=== PATIENT | male | born 1950 | race Caucasian/White ===

== ENCOUNTER → 2017-10-15 | Outpatient (CLI) | payer MEDICARE, OTHER, SELFPAY | PROVIDERS: Family Provider Physician Assistant; Visit Provider Physician Assistant | DX: J44.9 Chronic obstructive pulmonary disease, unspecified (principal); J18.1 Lobar pneumonia, unspecified organism | CPT/HCPCS: 71020 ==

== ENCOUNTER 2017-10-17 12:02 | Inpatient (IN) | payer MEDICARE, OTHER, SELFPAY | END 2017-10-18 14:08 | disposition home or self-care (01) | DRG 194 | PROVIDERS: Admitting Provider Internal Medicine Adolescent Medicine; Emergency Provider Emergency Medicine; Family Provider Physician Assistant; Visit Provider Internal Medicine Adolescent Medicine | DX: J10.00 Influenza due to other identified influenza virus with unspecified type of pneumonia (principal); C34.90 Malignant neoplasm of unspecified part of unspecified bronchus or lung; E11.9 Type 2 diabetes mellitus without complications; Z72.0 Tobacco use; I10 Essential (primary) hypertension | CPT/HCPCS: 71020; 80048; 80053; 85025; 87040; 87275; 87276; 93005; 93041; 94640; 94760; 96365; 96367; 99285; J1642; J1956 ==

== ENCOUNTER → 2017-12-15 13:14 | Outpatient (CLI) | payer MEDICARE, OTHER, SELFPAY ==
--- NOTE | 2017-12-15 13:20 | XR_ITS ---
XR chest 2V HISTORY: Follow-up pneumonia, cough, congestion, history of lung cancer ITS.REASON: HX PNEUMONIA ORDERING PHYSICIAN: Edyta Mayer PATIENT AGE: 67 years COMPARISON: 10/18/2017 FINDINGS: There is increasing opacification in the in inferior aspect of the right upper lobe and in the superior segment of the right lower lobe. There is increased density also the right lung base medially consistent with volume loss. Right hemidiaphragm is elevated. The left lung is clear. Normal heart size. Mediastinum is somewhat shifted toward the right. The heart size is normal. No obvious effusion. No acute bony anomalies. IMPRESSION: Worsening right upper and right lower lobe pneumonia now with right-sided volume loss and mediastinal shift toward the right. Right hilar mass with postobstructive changes should be considered in this patient with history of lung cancer. Recommend CT of the chest with contrast for further evaluation.
== END ==
PROVIDERS: PCP Physician Assistant; Visit Provider Physician Assistant
DX: Z87.01 Personal history of pneumonia (recurrent) (principal)
CPT/HCPCS: 71046

== ENCOUNTER → 2018-07-23 11:41 | Outpatient (CLI) | payer MEDICARE, OTHER, SELFPAY ==
--- NOTE | 2018-07-23 11:44 | CA_ITS ---
PROCEDURE: 2-D M-mode and color Doppler study INDICATIONS FOR THE TEST: Chest pain COPDx Heart Murmur Tobacco Smokingx Palpitations Fatigue Syncope Edema HypertensionxDiabetes Mellitusx Rheumatic Fever SOBxDOE Obesity Hyperlipidemia Family History HD Additional History CAD, Pacer, defibrillator, lung cancer, stent, chemotherapy comments: Technically difficult study PATIENT INFORMATION HEIGHT: 5'11'' WEIGHT: 190 GENDER: Male B/P: 124/74 2-D/M-MODE INTERPRETATION: 2-D MEASUREMENTS OBSERVED VALUES IN CMS Right Ventricular Dimension (RVDd) 2.5 Interventricular Septum (Thickness)(IVsd) 1.5 Left Ventricular Internal Dimensions(LVIDd) 4.6 Left Ventricular Posterior Wall (Thickness)(LVPWd) 1.4 Aortic Root 2.9 Aortic Cusp Separation 1.9 Left Atrial Dimensions (LAD) 2D 1. Technically difficult study because of the patient's factor and poor acoustic windows 2. The left atrium is mildly enlarged, left ventricle is normal size, mild concentric left ventricular hypertrophy, reduced left ventricular systolic function, visually estimated ejection fraction approximately 30-35%, there is abnormal septal motion. 3. The right atrium and right ventricle are relatively normal size and function, there is a catheter noted in the right ventricle which is likely an ICD lead. 4. The aortic valve is minimally thickened and calcified. 5. The mitral and tricuspid valve leaflets are minimally thickened. 6. The pulmonic valve is poorly visualized. 7. No significant pericardial effusion noted. DOPPLER INTERROGATION: Doppler interrogation of the aortic, mitral and tricuspid valve reveals presence of mild mitral and tricuspid regurgitation, tricuspid regurgitation jet velocity is insufficient for calculation of the right ventricular systolic pressure, diastolic parameters are inconclusive. CONCLUSION: 1. Technically difficult study because of the patient's factor and poor acoustic windows 2. Mildly left atrium, normal left ventricular size, mild concentric left ventricular hypertrophy, reduced left ventricular systolic function, visually estimated ejection fraction 30-35%, there is abnormal septal motion. 3. Mild mitral and tricuspid regurgitation 4. No significant pericardial effusion noted.
== END ==
PROVIDERS: Family Provider Physician Assistant; PCP Physician Assistant; Visit Provider Nurse Practitioner Family
DX: I25.10 Atherosclerotic heart disease of native coronary artery without angina pectoris (principal)
CPT/HCPCS: 93306